=== PATIENT | female | born 1990 | race African-American/Black ===

== ENCOUNTER 2017-04-19 13:09 | Emergency (ER) | payer MEDICAID, OTHER ==
[~2017-04-19] VITALS: Ht 167.6 cm; Wt 61.2 kg
--- NOTE | 2017-04-19 15:53 | NUR ---
PT IS IN ROOM #2A. DR CROWELL EVALUATED THE PT.
[2017-04-19 16:11] VITALS: BP 132/75
--- NOTE | 2017-04-19 16:11 | NUR ---
PT WAS D/C TO HOME. D/C INSTRUCTIONS GIVEN TO THE PT BY DR CROWELL.
== END 2017-04-19 16:13 | disposition home or self-care (01) ==
LOC: ER 13:09
DX: S61.210A Laceration without foreign body of right index finger without damage to nail, initial encounter (principal); X58.XXXA Exposure to other specified factors, initial encounter; Y93.89 Activity, other specified; Y92.89 Other specified places as the place of occurrence of the external cause; Y99.8 Other external cause status
CPT/HCPCS: 12001; 99283; A4217; A4663